=== PATIENT | female | born 1965 | race Two or more races ===

== ENCOUNTER 2023-12-21 09:24 | Day surgery (SDC) | payer MEDICAID ==
[2023-12-20 12:18] LABS: Urine Bacteria None Seen /hpf (None Seen)
[2023-12-20 12:27] LABS: Urine Blood Negative /uL (Negative); Urine Clarity Clear (Clear); Urine Color Yellow (Yellow); Urine Mucus FEW (None Seen); Urine Protein, UAD TRACE (Negative); Urine Specific Gravity 1.029 (1.001-1.035); Urine Urobilinogen 2 mg/dL (Negative); Urine WBC 1 /hpf (0 - 5); Urine pH 5.5 (5.0-9.0)
[2023-12-20 12:29] LABS: Basophils # (auto) 0.1 10 ^3/uL (0-0.2); Eosinophils # (auto) 0.2 10 ^3/uL (0-0.8); Hemoglobin 11.9 g/dL (12.2-16.2); Monocytes # (auto) 0.9 10 ^3/uL (0-1.3); Neutrophils # (auto) 6.3 10 ^3/uL (1.6-8.6)
[2023-12-20 12:33] LABS: Basophils % (auto) 0.9 % (0.0-2.0); Hematocrit 36.9 % (36.0-46.0); Lymphocytes # (auto) 1.5 10 ^3/uL (0.4-5.4); Mean Corpuscular Hemoglobin 23.5 pg (28.0-32.0); Mean Corpuscular Hgb Conc. 32.2 g/dL (32.0-36.0); Monocytes % (auto) 9.8 % (0.0-12.0); Neutrophils % (auto) 70.3 % (37.0-80.0); Platelet Count (auto) 391 10^3/uL (140-450); Red Blood Cells 5.05 10^6/uL (4.0-5.20); Red Cell Distribution Width 17.5 % (11.8-14.3)
[2023-12-20 12:42] LABS: INR 1.08 (0.9-1.15); Partial Thromboplastin Time 27.2 SEC (24.5-34.5); Prothrombin Time 11.4 sec (9.3-11.8)
[2023-12-20 12:51] LABS: Alanine Aminotransferase 17 U/L (7-40); Albumin 4.2 g/dL (3.2-4.8); Alkaline Phosphatase 95 U/L (46-116); Anion Gap 6 (5-15); Aspartate Aminotransferase 17 U/L (13-40); BUN/Creatinine Ratio 15.4 (10.0-20.0); Blood Urea Nitrogen 10 mg/dL (9-23); Calcium 9.8 mg/dL (8.7-10.4); Carbon Dioxide 26 mmol/L (20-31); Chloride 108 mmol/L (98-107); Glucose 147 mg/dL (74-106); Potassium 4.7 mmol/L (3.5-5.1); Sodium 140 mmol/L (136-145)
[2023-12-20 12:52] LABS: Bilirubin, Total 0.6 mg/dL (0.2-1.0); Total Protein 7.2 g/dL (5.7-8.2)
[~2023-12-21] VITALS: Ht 170.2 cm; Wt 81.6 kg
[~2023-12-21 09:24] MED LIST: AMLO1TAB23 PO; ATOR40TA52 PO; CHOL100047 PO; EMPA1TAB PO; GLIP10TA21 PO; METF-372 PO; METO-159 PO
[2023-12-21] MEDS ORDERED: GLYCOPYRROLATE 0.2 MG/ML 1ML VIAL ONE (10:28)
[2023-12-21] MEDS ORDERED: fentaNYL CITRATE 100 MCG/2 ML VL ONE (10:28)
[2023-12-21] MEDS ORDERED: PROPOFOL 10 MG/ML 20 ML IV ONE (10:28)
[2023-12-21] MEDS ORDERED: ONDANSETRON HCL 4 MG/2 ML VIAL ONE (10:28)
[2023-12-21] MEDS ORDERED: MIDAZOLAM HCL 2MG/2ML 2ml VIAL (1mg/ml) ONE (10:28)
[2023-12-21 11:00] VITALS: PULSE 64; RESP 22; TEMP 97.5; O2SAT 96
[2023-12-21] MEDS ORDERED: ONDANSETRON HCL 4 MG/2 ML VIAL IV ONE (11:15)
[2023-12-21] MEDS ORDERED: HYDROmorphone HCL 2 MG/ML VL/or syr IV PRN (11:15)
[2023-12-21 11:30] VITALS: BP 169/70; PULSE 62; RESP 17; O2SAT 96
== END 2023-12-21 11:48 | disposition home or self-care (01) ==
LOC: GI 09:24
PROVIDERS: ATTEND Internal Medicine Gastroenterology
DX: R19.7 Diarrhea, unspecified (principal); K29.50 Unspecified chronic gastritis without bleeding; C19 Malignant neoplasm of rectosigmoid junction; D12.8 Benign neoplasm of rectum; K63.89 Other specified diseases of intestine; I25.10 Atherosclerotic heart disease of native coronary artery without angina pectoris; E11.9 Type 2 diabetes mellitus without complications; I10 Essential (primary) hypertension; E78.5 Hyperlipidemia, unspecified; I25.2 Old myocardial infarction; Z79.899 Other long term (current) drug therapy; Z98.890 Other specified postprocedural states; Z86.2 Personal history of diseases of the blood and blood-forming organs and certain disorders involving the immune mechanism
CPT/HCPCS: 36415; 43239; 45380; 80053; 81001; 85025; 85610; 85730; 88305; 88342; J2250; J2405; J2704; J3010; J7030